=== PATIENT | male | born 1965 | race Caucasian/White ===

== ENCOUNTER 2022-05-10 07:43 | Outpatient (RCR) | payer OTHER, SELFPAY ==
[2022-05-10 08:33] VITALS: BMI 29.5
== END 2022-07-19 10:50 | disposition home or self-care (01) ==
LOC: ANHWOC 07:43
PROVIDERS: PCP Physician Assistant Medical; Visit Provider Nurse Practitioner Family
DX: L98.9 Disorder of the skin and subcutaneous tissue, unspecified (principal)
CPT/HCPCS: 99213; G0463